=== PATIENT | male | born 1995 | race Caucasian/White ===

== ENCOUNTER 2025-02-26 18:53 | Emergency (ER) | payer SELFPAY ==
[~2025-02-26] VITALS: Ht 170.2 cm; Wt 113.4 kg
[2025-02-26 19:55] VITALS: BP 131/87
== END 2025-02-26 20:04 | disposition home or self-care (01) ==
LOC: ER 18:53
DX: S83.005A Unspecified dislocation of left patella, initial encounter (principal); X50.1XXA Overexertion from prolonged static or awkward postures, initial encounter; Y99.2 Volunteer activity
CPT/HCPCS: 73562-LT; 99284-25